=== PATIENT | male | born 1970 | race Hispanic/Latino ===

== ENCOUNTER 2021-01-25 17:52 | Emergency (ER) | payer OTHER ==
[~2021-01-25] VITALS: Ht 180.3 cm; Wt 127.0 kg
[2021-01-25] MEDS ORDERED: KETOROLAC TROMETHAMINE 30 MG/ML VIAL ONE (18:23)
[2021-01-25] MEDS ORDERED: CYCLOBENZAPRINE5 MG PO (19:49)
== END 2021-01-25 20:04 | disposition home or self-care (01) ==
LOC: ER 20:04
DX: R07.89 Other chest pain (principal)
CPT/HCPCS: 36415; 71045; 84484; 93005; 99284; J1885